=== PATIENT | male | born 1990 | race African-American/Black ===

== ENCOUNTER 2017-06-27 11:11 | Emergency (ER) | payer SELFPAY ==
[2017-06-27 11:31] VITALS: TEMP 98.2; BMI 51.1
--- NOTE | 2017-06-27 11:54 | PDOC ---
History of Present Illness - General Chief Complaint: Chest Pain Stated Complaint: Shortness of Breath Time Seen by Provider: 06/27/17 11:38 History Source: Patient Exam Limitations: No Limitations Past History - Past Medical History Allergies/Adverse Reactions: Allergies Allergy/AdvReac Type Severity Reaction Status Date / Time No Known Allergies Allergy Verified 06/27/17 12:50 Home Medications: Ambulatory Orders NK [No Known Home Medication] 01/05/14 Cardiac Disorders: Yes (wpw) - Surgical History Cardiac Surgery: Yes (cardiac ablation) - Suicide/Smoking/Psychosocial Hx Smoking History: Never smoked Have you smoked in the past 12 months: No Hx Alcohol Use: Yes (for sociaization) Drug/Substance Use Hx: Yes (smokes marijuana) *Physical Exam - Vital Signs Last Vital Signs Temp Pulse Resp BP Pulse Ox 98.2 F 53 L 19 134/92 100 06/27/17 11:26 06/27/17 11:26 06/27/17 11:26 06/27/17 11:26 06/27/17 11:34 ED Treatment Course - LABORATORY CBC & Chemistry Diagram: 06/27/17 12:20 06/27/17 12:22 *DC/Admit/Observation/Transfer Diagnosis at time of Disposition: Anxiety attack Migraine headache Qualifiers: Migraine type: unspecified Status migrainosus presence: without status migrainosus Intractability: not intractable Qualified Code(s): G43.909 - Migraine, unspecified, not intractable, without status migrainosus; G43.909 - Migraine, unspecified, not intractable, without status migrainosus; G43.909 - Migraine, unspecified, not intractable, without status migrainosus - Discharge Dispostion Disposition: HOME Condition at time of disposition: Improved Admit: No - Referrals Referrals: Jonathan Rangel [Primary Care Provider] - Denis Hwang DO [Staff Physician] - - Patient Instructions Printed Discharge Instructions: DI for Migraine Additional Instructions: You have a migraine that got better with medication today. Your EKG was normal as well as your lab work. Continues to take 800 mg of ibuprofen 3 times a day starting tonight to help reduce your migraine symptoms. Take this medication until 24 hours after your migraine has stopped. You may also take Benadryl if you need help to sleep at night. Do not drive after taking this medication as it may make you sleepy. Drink plenty of fluids and get plenty of rest. Follow up with your primary care doctor within one week. Attached he will also find a referral for a neurologist. Return to the emergency department if you have worsening fevers, pain, visual changes, numbness or tingling, weakness or any changes in your symptoms. - Post Discharge Activity Forms/Work/School Notes: Back to Work
[2017-06-27] MEDS ORDERED: SODIUM CHLORIDE 1,000 ML IV STA (11:56)
[2017-06-27] MEDS ORDERED: KETOROLAC TROMETHAMINE 30 MG/1 ML VIAL IVPUSH ONE (11:58)
[2017-06-27] MEDS ORDERED: METOCLOPRAMIDE HCL INJECTION 10 MG/2 ML VIAL IVPUSH ONE (11:58)
[2017-06-27] MEDS ORDERED: KETOROLAC TROMETHAMINE 30 MG/1 ML VIAL ONE (12:33)
[2017-06-27] MEDS ORDERED: METOCLOPRAMIDE HCL INJECTION 10 MG/2 ML VIAL ONE (12:33)
[2017-06-27 12:44] LABS: BASOPHIL 0.4 % (0-2.0); EOSINOPHIL 2.3 % (0-4.5); MCH 28.4 pg (25.7-33.7); MCHC 32.3 g/dl (32.0-35.9); MEAN CELL VOLUME 87.7 fl (80-96); NEUTROPHILS 58.8 % (42.8-82.8); PLATELET COUNT 240 K/MM3 (134-434); RDW 12.8 % (11.9-15.9); WHITE BLOOD COUNT 7.2 K/mm3 (4.0-10.0)
[2017-06-27 12:55] LABS: ALBUMIN 4.3 g/dl (3.4-5.0); ANION GAP 10 (8-16); CALCIUM 9.4 mg/dL (8.5-10.1); CO2 27 mmol/L (21-32); CREATININE 1.2 mg/dL (0.7-1.3); GLUCOSE,RANDOM 76 mg/dL (74-106); SGOT/AST 19 U/L (15-37); SGPT/ALT 23 U/L (12-78)
[2017-06-27 12:56] LABS: INR 1.13 (0.82-1.09); PROTHROMBIN TIME (PATIENT) 12.8 SEC (9.98-11.88)
[2017-06-27 12:56] LABS: ALK PHOS 89 U/L (45-117)
[2017-06-27 12:59] LABS: CPK 220 IU/L (39-308); TROPONIN I < 0.02 ng/ml (0.00-0.05)
[2017-06-27] MEDS ORDERED: ACETAMINOPHEN 1000 MG/100 ML VIAL (NON FORMULARY) IVPB ONE (14:04)
[2017-06-27] MEDS ORDERED: ACETAMINOPHEN INJECTION 100 ML IVPB ONE (14:15)
[2017-06-27 14:26] VITALS: BP 132/78; PULSE 62
--- NOTE | 2017-06-27 17:14 | EKG ---
Test Reason : Blood Pressure : / mmHG Vent. Rate : 053 BPM Atrial Rate : 053 BPM P-R Int : 142 ms QRS Dur : 084 ms QT Int : 370 ms P-R-T Axes : 063 059 032 degrees QTc Int : 347 ms SINUS BRADYCARDIA OTHERWISE NORMAL ECG WHEN COMPARED WITH ECG OF 05-JAN-2014 00:36, NO SIGNIFICANT CHANGE WAS FOUND Confirmed by WEI TAYLOR MD ([id number]) on 06/27/2017 5:14:00 PM Referred By: Confirmed By:WEI TAYLOR MD
== END 2017-06-27 15:32 | disposition home or self-care (01) ==
LOC: JER 11:11
PROC: 3E0337Z Introduction of Electrolytic and Water Balance Substance into Peripheral Vein, Percutaneous Approach (ICD-10-PCS; principal; 2017-06-27)
PROC: 3E033NZ Introduction of Analgesics, Hypnotics, Sedatives into Peripheral Vein, Percutaneous Approach (ICD-10-PCS; 2017-06-27)
PROC: 3E0333Z Introduction of Anti-inflammatory into Peripheral Vein, Percutaneous Approach (ICD-10-PCS; 2017-06-27)
PROC: 3E033GC Introduction of Other Therapeutic Substance into Peripheral Vein, Percutaneous Approach (ICD-10-PCS; 2017-06-27)
DX: F41.9 Anxiety disorder, unspecified (principal); G43.909 Migraine, unspecified, not intractable, without status migrainosus
CPT/HCPCS: 36415; 71010-TC; 80053; 82550; 82553; 84443; 84484; 85025; 85610; 93005; 93010; 99284-25